=== PATIENT | male | born 1980 | race Caucasian/White ===

== ENCOUNTER 2023-04-23 08:10 | Emergency (ER) | payer MEDICAID, OTHER ==
[~2023-04-23] VITALS: Ht 180.3 cm; Wt 81.6 kg
[2023-04-23 08:17] VITALS: O2SAT 100
[2023-04-23] MEDS ORDERED: keppra (08:17)
[2023-04-23] MEDS ORDERED: LEVETIRACETAM 1000MG PREMIX 100 ML IV ONE (08:45)
[2023-04-23] MEDS ORDERED: LORAZEPAM 2MG/ML CPJ IV ONE (08:45)
[2023-04-23 08:51] LABS: HEMATOCRIT. 36.7 % (42.0-52.0); MEAN CORPUSCULAR HEMOGLOBIN 30.1 pg (28.0-32.0); MEAN CORPUSCULAR HGB CONC 32.8 g/dL (31.0-37.0); MEAN CORPUSCULAR VOLUME 91.8 fL (80.0-94.0); MEAN PLATELET VOLUME 8.6 fl (7.4-10.4); PLATELET 113 x1000/uL (130-400); RED CELL DISTRIBUTION WIDTH 18.3 % (11.6-14.6); WHITE BLOOD COUNT 6.8 x1000/uL (4.5-11.0)
[2023-04-23 08:55] LABS: DIFFERENTIAL COMMENT 1
[2023-04-23 08:59] LABS: INR 1.1; PROTHROMBIN TIME 11.4 sec (9.6-11.0)
[2023-04-23 09:01] LABS: CHLORIDE 99 mEq/L (98-107); INDEX HEMOLYSI 1 (1-3); INDEX ICTERIC 1 (1-4); INDEX LIPEMIC 1 (1-3); POTASSIUM 3.3 mEq/L (3.5-5.1); SODIUM 137 mEq/L (136-145)
[2023-04-23 09:09] LABS: ALANINE AMINOTRANSFERASE 84 IU/L (13-61); ASPARTATE AMINOTRANSFERASE 124 IU/L (15-37); BILIRUBIN TOTAL 1.2 mg/dL (0.1-1.0); CALCIUM 8.9 mg/dL (8.5-10.1); CARBON DIOXIDE 21 mEq/L (21-32); CREATININE 0.5 mg/dL (0.6-1.3); ETHANOL BLOOD 13 mg/dL (<10); GLUCOSE 119 mg/dL (70-105); PROTEIN TOTAL 7.4 g/dL (6.0-8.3); UREA NITROGEN BLOOD 11 mg/dL (7-21)
[2023-04-23 09:41] LABS: PLATELET ESTIMATE NORMAL
[2023-04-23] MEDS ORDERED: CHLO25CA10 PO (13:42)
[2023-04-23 13:45] VITALS: BP 108/73; PULSE 88; RESP 18; TEMP 97.9
[2023-04-23] MEDS ORDERED: CHLORDIAZEPOXIDE 25MG CAPSULE PO ONE (13:45)
== END 2023-04-23 14:17 | disposition home or self-care (01) ==
LOC: EDBD 08:25 → ER 08:25
DX: S02.2XXA Fracture of nasal bones, initial encounter for closed fracture (principal); R56.9 Unspecified convulsions; F10.10 Alcohol abuse, uncomplicated; W18.30XA Fall on same level, unspecified, initial encounter; Y93.89 Activity, other specified; Y92.89 Other specified places as the place of occurrence of the external cause; Y99.8 Other external cause status; Y90.0 Blood alcohol level of less than 20 mg/100 ml
CPT/HCPCS: 80053; 80320; 85025; 85610; 36415; 70450; 70486; 96365; 96366; 96375; 99285; J1953; J2060; Z7610; G0480

== ENCOUNTER 2025-02-22 17:59 | Emergency (ER) | payer MEDICAID ==
[~2025-02-22] VITALS: Ht 172.7 cm; Wt 73.0 kg
[~2025-02-22 17:59] MED LIST: CHLO25CA10 PO; keppra
[2025-02-22 18:00] VITALS: O2SAT 98
[2025-02-22] MEDS ORDERED: LIDOCAINE HCL/EPINEPHRINE 1%-EPI 1:100,000 20ML VIAL INFIL ONE (18:45)
[2025-02-22] MEDS: LEVETIRACETAM 500MG PREMIX 100 ML IV ONE (18:49)
[2025-02-22 18:55] LABS: BASOPHILS % 1.1 % (0.0-2.0); EOSINOPHILS % 0.7 % (0.0-5.0); HEMATOCRIT. 41.4 % (42.0-52.0); HEMOGLOBIN. 13.7 g/dL (14.0-18.0); LYMPHOCYTES % 22.8 % (20.0-50.0); MEAN PLATELET VOLUME 8.6 fl (7.4-10.4); MONOCYTES % 9.4 % (2.0-8.0); NEUTROPHILS % 66.0 % (40.0-76.0); PLATELET 245 x1000/uL (130-400); RED BLOOD CELL COUNT 4.31 mill/uL (4.7-6.1); RED CELL DISTRIBUTION WIDTH 13.5 % (11.6-14.6)
[2025-02-22 18:59] LABS: CREATININE 0.9 mg/dL (0.6-1.3); UREA NITROGEN BLOOD 10 mg/dL (9-23)
[2025-02-22 20:31] VITALS: BP 121/83; PULSE 81; RESP 16; TEMP 36.7; O2SAT 99
== END 2025-02-22 20:36 | disposition home or self-care (01) ==
LOC: ER 17:59
DX: S01.511A Laceration without foreign body of lip, initial encounter (principal); G40.409 Other generalized epilepsy and epileptic syndromes, not intractable, without status epilepticus; Z79.899 Other long term (current) drug therapy; X58.XXXA Exposure to other specified factors, initial encounter; Y93.89 Activity, other specified; Y92.89 Other specified places as the place of occurrence of the external cause; Y99.8 Other external cause status
CPT/HCPCS: 80048; 85025; 36415; 93005; 12011; 96365; 99284; J1953; J2004; Z7610